=== PATIENT | male | born 1985 | race Two or more races ===

== ENCOUNTER 2016-09-05 06:20 | Emergency (ER) | payer BC ==
[~2016-09-05] VITALS: Ht 182.9 cm; Wt 74.8 kg
[2016-09-05] MEDS ORDERED: ZOFRAN ODT4 MG PO (08:36)
== END 2016-09-05 08:59 | disposition home or self-care (01) ==
LOC: ED 06:20
DX: K52.9 Noninfective gastroenteritis and colitis, unspecified (principal)
CPT/HCPCS: 74177; 80053; 81001; 83690; 85025; 96374; 96375; 99284; J1885; J2405; J7030; Q9967